=== PATIENT | female | born 1990 | race Caucasian/White ===

== ENCOUNTER 2018-09-25 20:56 | Emergency (ER) | payer OTHER ==
[2018-09-25 21:15] VITALS: BP 113/69
--- NOTE | 2018-09-25 21:25 | UC ---
Skin Complaint HPI - HPI Summary HPI Summary: Patient presents concerned she may have Lyme disease. Patient states over the last several days she's been feeling very tired had some body aches started low back that spread to other joints. Patient states she's had a fever last night to 102. Patient took antipyretics last night but nothing today. Patient states she noticed a swollen lymph node in her right inguinal area for the last 2-3 days. Patient states is nontender. Patient does not think its change in size. Patient states today she noticed a rash on her right upper thigh. 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 Patient does not know of any engorgement embedded ticks. Patient states she is concerned she may have Lyme disease based on how she feels. No nausea vomiting. No chest pain or shortness of breath. Patient states she does not think she is but there is a possibility. Patient does not smoke. Patient is not immunocompromised. Patient's medications reviewed this visit. - History of Current Complaint Chief Complaint: UCBackPain Time Seen by Provider: 09/25/18 21:17 Stated Complaint: POSS TICK BITE Hx Obtained From: Patient Hx Last Menstrual Period: 09/09/18 Onset/Duration: Gradual Onset Timing: Constant Onset Severity: Mild Current Severity: Mild Pain Intensity: 4 - Allergy/Home Medications Allergies/Adverse Reactions: Allergies Allergy/AdvReac Type Severity Reaction Status Date / Time No Known Allergies Allergy Verified 09/25/18 21:15 PMH/Surg Hx/FS Hx/Imm Hx Previously Healthy: Yes - Surgical History Surgical History: None - Family History Known Family History: Positive: Non-Contributory - Social History Occupation: Employed Full-time Lives: With Family Alcohol Use: None Substance Use Type: None Smoking Status (MU): Never Smoked Tobacco Review of Systems All Other Systems Reviewed And Are Negative: Yes Constitutional: Positive: Fever, Fatigue Skin: Positive: Rash Eyes: Positive: Negative ENT: Positive: Negative Respiratory: Positive: Negative Cardiovascular: Positive: Negative Gastrointestinal: Positive: Negative Musculoskeletal: Positive: Myalgia Neurological: Positive: Weakness Physical Exam - Summary Physical Exam Summary: Vital Signs Reviewed: Yes A+Ox3, no distress Eyes: Conjunctiva Clear, SEPIDEH. EOM intact and full ENT: Hearing grossly normal TM x 2 clear, mmoist, uvula midline, no exudate, no erythema Neck: Positive: Supple Respiratory: Positive: No respiratory distress, No accessory muscle use + CTA throughout no w/r Cardiovascular: RRR nl s1, s2 no m/r CBT <2 sec abd soft + BS nt/nd no guarding, no distension Musculoskeletal Exam: SOUSA x 4 without difficulty Strength Intact, ROM Intact No pain c/t/l/s full AROM, pt with small, mobile, non tender lymph node right inguinal area Neurological: Positive: Alert, + sensation throughout Psychological: Positive: Normal Response To Family Skin: Positive: no ecchymosis pt with 3x2cm oval flat area of erythema with central clearing on right prox medial inner thigh non tender, non raised Triage Information Reviewed: Yes Vital Signs: Initial Vital Signs Temp 100.1 F 09/25/18 21:08 Pulse 93 09/25/18 21:08 Resp 12 09/25/18 21:08 BP 113/69 09/25/18 21:08 Pulse Ox 99 09/25/18 21:08 Course/Dx - Course Course Of Treatment: Patient presents concerning for Lyme disease. Patient with several days of progressive fatigue, fever, body aches, and today noticed a rash on her right upper thigh. Patient with a history of repeat tick exposures. Patient without any other complaints. On exam vital signs are stable. Patient does have a low- grade temperature here. Patient also has a flat red area concerning for erythema migrans. Discussed with patient at length. Exam and complaints concerning for Lyme disease. We'll start patient on doxycycline. Strict return precautions. We'll check a CBC chemistry TSH given her fatigue and lying. Patient to follow up with PCP or Dr. Ibarra. Strict return precautions. Patient comfortable in agreement with plan. Patient declined work note. - Diagnoses Provider Diagnosis: Viral syndrome, Suspected Lyme disease Discharge - Sign-Out/Discharge Documenting (check all that apply): Patient Departure All imaging exams completed and their final reports reviewed: No Studies - Discharge Plan Condition: Stable Disposition: HOME Prescriptions: DOXYcycline CAP(*) [DOXYcycline 100MG CAP(*)] 100 mg PO BID #42 cap Patient Education Materials: Lyme Disease (ED), Viral Syndrome (ED) Referrals: Camden Walters DO [Primary Care Provider] - Additional Instructions: - Stay well hydrated. Drink plenty of non-alcoholic, non-caffinated beverages. - Alternate ibuprofen (Advil, Motrin) 600mg and Tylenol every 3 hours for pain or fever. Take with food. Do NOT take for more than 4-5 days. - As discussed - your blood work will return over the next week. If there are concerning results, you will receive a call from a care steam and gas turbine assembler - Take antibiotics as prescribed - as discussed - you were started on the treatment for Lyme disease. You have been given antibiotics for the full 3 week course - It is recommended you schedule a follow-up appointment with your primary doctor or the infectious disease specialist- call on Friday to schedule and appointment - get plenty of restful sleep - If you symptoms worsen - uncontrolled fever., vomiting, confusion, uncontrolled pain or any other concens it is recommended you go to the emergency department for further testing and evaluation - Billing Disposition and Condition Condition: STABLE Disposition: Home
[2018-09-25] MEDS ORDERED: DOXYcycline CAP(*) 100 MG PO ONE (21:57)
[2018-09-26 15:11] LABS: ABS Eosinophils 0.1 10^3/ul (0-0.6); ABS Lymphocytes 1.4 10^3/ul (1.0-4.8); ABS Monocytes 0.7 10^3/ul (0-0.8); ABS Neutrophils 4.9 10^3/ul (1.5-7.7); Eosinophil % 1.7 %; Hematocrit 39 % (35-47); Hemoglobin 12.9 g/dL (12.0-16.0); Lymphocyte % 19.6 %; Mean Corpuscular HGB Conc 34 g/dL (31-36); Mean Corpuscular Hemoglobin 29 pg (27-31); Mean Corpuscular Volume 86 fL (80-97); Mean Platelet Volume 9.1 fL (7.4-10.4); Nucleated Red Blood Cells % 0.2; Platelet Count 200 10^3/uL (150-450); Red Blood Count 4.46 10^6 /uL (3.70-4.87); Red Cell Distribution Width 14 % (10-15); White Blood Count 7.1 10^3/uL (3.5-10.8)
[2018-09-26 15:38] LABS: TSH (Thyroid Stimulating Horm) 1.24 mcIU/mL (0.34-5.60)
[2018-09-26 15:54] LABS: Calcium 9.5 mg/dL (8.6-10.3); Magnesium 2.1 mg/dL (1.9-2.7); Potassium 3.9 mmol/L (3.5-5.0)
[2018-09-26 15:59] LABS: BUN/Creatinine Ratio 13.3 (8-20); EGFR African American 111.3 (>60)
--- NOTE | 2018-09-27 08:26 | UC ---
- Progress Note Progress Note: Lab test results reviewed today: BMP, CBCD within normal limits Patient is being treated with doxycycline for concern of Lyme disease and was recommended to follow with infectious disease. TSH pending at this time no change in plan Course/Dx - Diagnoses Provider Diagnoses: Viral syndrome, Suspected Lyme disease Discharge - Sign-Out/Discharge Documenting (check all that apply): Post-Discharge Follow Up All imaging exams completed and their final reports reviewed: No Studies - Discharge Plan Condition: Stable Disposition: HOME Prescriptions: DOXYcycline CAP(*) [DOXYcycline 100MG CAP(*)] 100 mg PO BID #42 cap Patient Education Materials: Lyme Disease (ED), Viral Syndrome (ED) Referrals: Camden Waltres DO [Primary Care Provider] - Additional Instructions: - Stay well hydrated. Drink plenty of non-alcoholic, non-caffinated beverages. - Alternate ibuprofen (Advil, Motrin) 600mg and Tylenol every 3 hours for pain or fever. Take with food. Do NOT take for more than 4-5 days. - As discussed - your blood work will return over the next week. If there are concerning results, you will receive a call from a care state farm agent team member - Take antibiotics as prescribed - as discussed - you were started on the treatment for Lyme disease. You have been given antibiotics for the full 3 week course - It is recommended you schedule a follow-up appointment with your primary doctor or the infectious disease specialist- call on Friday to schedule and appointment - get plenty of restful sleep - If you symptoms worsen - uncontrolled fever., vomiting, confusion, uncontrolled pain or any other concens it is recommended you go to the emergency department for further testing and evaluation - Billing Disposition and Condition Condition: STABLE Disposition: Home
--- NOTE | 2018-09-27 15:54 | UC ---
- Progress Note Progress Note: 09/27/2018 Lyme screen: Lyme IGG, IGM: negative Please callback patient and notified her of result and advised to stop taken Doxycycline PO or f/u w/ her PCP if not improvement of rash thank you Manpreet Harris PA-C Course/Dx - Diagnoses Provider Diagnoses: Viral syndrome, Suspected Lyme disease Discharge - Sign-Out/Discharge Documenting (check all that apply): Post-Discharge Follow Up All imaging exams completed and their final reports reviewed: No Studies - Discharge Plan Condition: Stable Disposition: HOME Prescriptions: DOXYcycline CAP(*) [DOXYcycline 100MG CAP(*)] 100 mg PO BID #42 cap Patient Education Materials: Lyme Disease (ED), Viral Syndrome (ED) Referrals: Camden Walters DO [Primary Care Provider] - Additional Instructions: - Stay well hydrated. Drink plenty of non-alcoholic, non-caffinated beverages. - Alternate ibuprofen (Advil, Motrin) 600mg and Tylenol every 3 hours for pain or fever. Take with food. Do NOT take for more than 4-5 days. - As discussed - your blood work will return over the next week. If there are concerning results, you will receive a call from a care team primary care physician - Take antibiotics as prescribed - as discussed - you were started on the treatment for Lyme disease. You have been given antibiotics for the full 3 week course - It is recommended you schedule a follow-up appointment with your primary doctor or the infectious disease specialist- call on Friday to schedule and appointment - get plenty of restful sleep - If you symptoms worsen - uncontrolled fever., vomiting, confusion, uncontrolled pain or any other concens it is recommended you go to the emergency department for further testing and evaluation - Billing Disposition and Condition Condition: STABLE Disposition: Home
== END 2018-09-25 22:35 | disposition home or self-care (01) ==
LOC: UCEAST 20:56
DX: B34.9 Viral infection, unspecified (principal)
CPT/HCPCS: 36415; 80048; 83735; 84443; 84702; 85025; 86618; 99212; A9270-GY; G0463